=== PATIENT | female | born 1975 | race Hispanic/Latino ===

== ENCOUNTER 2023-06-22 02:47 | Emergency (ER) | payer OTHER ==
[~2023-06-22] VITALS: Ht 152.4 cm; Wt 81.6 kg
[2023-06-22] MEDS ORDERED: OXYMETAZOLINE HCL SPRAY 15 ML BOTTLE ONE (03:09)
[2023-06-22] MEDS ORDERED: SILVER NITRATE APPLICATOR 1 SWAB TP ONE (03:10)
[2023-06-22] MEDS ORDERED: LIDOCAINE HCL 2% VISCOUS 15 ML UDCUP ONE (03:16)
[2023-06-22] MEDS ORDERED: OXYMETAZOLINE HCL SPRAY 15 ML BOTTLE EN SCH (03:30)
[2023-06-22] MEDS ORDERED: LIDOCAINE HCL 2% VISCOUS 15 ML UDCUP PO ONE (03:30)
[2023-06-22 03:49] LABS: BASOPHILS # (AUTO) 0.02 K/uL (0.00-0.20); BASOPHILS % (AUTO) 0.4 % (0.0-5.0); EOSINOPHILS # (AUTO) 0.12 K/uL (0.00-0.70); EOSINOPHILS % (AUTO) 2.3 % (0.0-8.0); HEMATOCRIT 37.7 % (36-48); IMMATURE GRANULOCYTE ABSOLUTE 0.01 K/uL (0-1); LYMPHOCYTES # (AUTO) 1.5 K/uL (1.0-4.8); LYMPHOCYTES % (AUTO) 29.5 % (21.0-51.0); MEAN CORPUSCULAR HEMOGLOBIN 28.6 pg (27.0-33.0); MEAN CORPUSCULAR HGB CONC 33.4 g/dL (32.0-36.0); MEAN CORPUSCULAR VOLUME 85.7 fL (79-99); MONOCYTES # (AUTO) 0.3 K/uL (0.1-1.0); MONOCYTES % (AUTO) 4.8 % (3.0-13.0); NEUTROPHILS # (AUTO) 3.3 K/uL (1.8-7.7); NEUTROPHILS % (AUTO) 62.8 % (40.0-77.0); PLATELET COUNT (AUTO) 77 K/uL (130-400); RED CELL DISTRIBUTION WIDTH 14.8 % (11.0-15.5); WHITE BLOOD COUNT (AUTO) 5.2 K/uL (4.8-10.8)
[2023-06-22 04:01] LABS: INR 0.97 (0.85-1.15); PROTHROMBIN TIME 11.3 SEC (9.6-11.6)
[2023-06-22 04:03] LABS: PARTIAL THROMBOPLASTIN TIME 27.3 SEC (26.3-35.5)
[2023-06-22 04:05] LABS: ALBUMIN 3.9 g/dL (3.5-5.0); BILIRUBIN,TOTAL 0.9 mg/dL (0.2-1.0); CREATININE 0.7 mg/dL (0.5-1.5); POTASSIUM 3.2 mmol/L (3.5-5.1)
[2023-06-22 06:05] VITALS: BP 112/82; PULSE 70; RESP 16; O2SAT 99
[2023-06-22] MEDS ORDERED: OXYM30SP27 NS (06:18)
== END 2023-06-22 06:46 | disposition home or self-care (01) ==
LOC: EDH 02:47
DX: R04.0 Epistaxis (principal); D69.6 Thrombocytopenia, unspecified; I10 Essential (primary) hypertension; E11.9 Type 2 diabetes mellitus without complications; Z90.89 Acquired absence of other organs; Z90.49 Acquired absence of other specified parts of digestive tract; Z90.710 Acquired absence of both cervix and uterus
CPT/HCPCS: 29240; 30901; 36415; 80053; 85025; 85610; 85730

== ENCOUNTER 2025-04-18 05:34 | Inpatient (IN) | payer OTHER ==
[~2025-04-18] VITALS: Ht 162.6 cm; Wt 89.1 kg
[~2025-04-18 05:34] MED LIST: OXYM30SP27 NS
[2025-04-18] MEDS: LACTATED RINGERS 1000ML IV STA (06:03)
[2025-04-18 06:10] LABS: IMMATURE GRANULOCYTE ABSOLUTE 0.05 K/uL (0-1); NUCLEATED RED BLOOD CELLS 0.0 % (0.0-0.19); PLATELET COUNT (AUTO) 122 K/uL (130-400); RED BLOOD CELL COUNT(AUTO) 2.61 MIL/uL (4.00-5.50); RED CELL DISTRIBUTION WIDTH 17.8 % (11.0-15.5); WHITE BLOOD COUNT (AUTO) 10.1 K/uL (4.8-10.8)
--- NOTE | 2025-04-18 06:20 | EKG ---
[facility] Test Date: 2025-04-18 Test Time: 05:47:30 Pat Name: SKIP BACA Department: ED Room: 430 Gender: F Protein Specialist: [id number] : 1975 Requested By: KELLEY SERRANO Order Number: [id number] Reading MD: Kelsi Santaan Measurements Intervals [place] Rate: 128 P: 12 MS: 130 QRS: -23 QRSD: 76 T: -10 QT: 330 QTc: 482 Interpretive Statements Sinus tachycardia No previous ECG available for comparison Electronically Signed On 04-19-2025 16:11:10 CDT by Kelsi Santana Please click the below link to view image of tracing.
[2025-04-18 06:26] LABS: ASPARTATE AMINOTRANSFERASE 11.0 U/L (10-37); CREATININE 0.6 mg/dL (0.5-1.0); GLOMERULAR FILTR. RATE CALC 111.0 mL/min (>90); GLUCOSE,RANDOM 317.0 mg/dL (70-105); SODIUM SERUM 138.0 mmol/L (136-145); TOTAL PROTEIN, SERUM 5.7 g/dL (6.0-8.3); UREA NITROGEN, BLOOD 30.0 mg/dL (7-18)
--- NOTE | 2025-04-18 06:45 | HMCIMG ---
EXAM: CR Abdomen, 1 view. CLINICAL HISTORY: Emesis COMPARISON: None provided. FINDINGS: Surgical clip in the right upper quadrant, right lumbar region, and in the pelvis. Nonobstructive bowel gas pattern. Moderate fecal residue in the cecum and ascending and proximal transverse colon. Nonobstructed nonspecific bowel gas pattern. No free air is evident. No abnormal calcification. No aggressive appearing osseous lesion. IMPRESSION: No acute process. Nonobstructive bowel gas pattern. Moderate fecal residue in the cecum and ascending and proximal transverse colon. Probable causes of constipation. Surgical clip in the right upper quadrant, right lumbar region, and pelvis. /[place]
--- NOTE | 2025-04-18 06:49 | ERN ---
General Chief Complaint: Tarry Stool Stated Complaint: VOMITING BLOOD X 2 DAYS,BLACK STOOLS X 1 DAY Time Seen by MD: 05:39 History of Present Illness Initial Comments 50-year-old female with a history of hypertension liver disease and anemia comes in with history of emesis with bright red blood for two days as well as black tarry stools for two days. In addition she feels lightheaded and is extremely tachycardic to 130. She also feels pale skin and short of breath. Allergies: Coded Allergies: No Known Allergies (Unverified Allergy, Unknown, 06/22/23) Home Meds Active Scripts Oxymetazoline HCl (Afrin) 0.05 % [place], 2 SPRAY NS Q2HPRN PRN for nose bleed, #1 SPRAY Prov:YNR LE MD 06/22/23 Past Medical History Past Medical History: Anemia, Diabetes-Type II, Hypertension, Liver Disease, Other Medical History Other: LOW PLT, FREQUENT NOSE BLEEDS, NON ALCOHOLIC CIRRHOSIS Past Surgical History: Appendectomy, Hysterectomy, Cholecystectomy, Constitutional: (-) chills, (-) diaphoresis, (-) fever, (-) malaise, (-) weakness, (-) other documentation EENTM: (-) eye pain, (-) blurred vision, (-) tearing, (-) double vision, (-) ear pain, (-) ear discharge, (-) nose pain, (-) nose congestion, (-) throat pain, (-) Throat swelling, (-) mouth pain, (-) tooth pain, (-) mouth swelling, (-) other documentation Respiratory: (-) cough, (-) orthopnea, (-) short of breath, (-) stridor, (-) wheezing, (-) other documentation Cardiovascular: (-) chest pain, (-) edema, (-) palpitations, (-) syncope, (-) dyspnea on exertion, (-) other documentation Gastrointestinal/Abdominal: (+) nausea, (+) vomiting Genitourinary: (-) vaginal discharge, (-) vaginal bleeding, (-) dysuria, (-) frequency, (-) hematuria, (-) pain, (-) other documentation Musculoskeletal: (-) Neck pain, (-) back pain, (-) Flank Pain, (-) joint pain, (-) joint swelling, (-) muscle pain, (-) muscle stiffness, (-) gout, (-) other documentation Physical Exam General Appearance: (+) moderate distress Orientation: (+) alert, (+) oriented x 3 Head/Face Trauma: No Eye: bilateral eye normal inspection, bilateral eye PERRL, bilateral eye EOMI Ear, Nose, Throat: (+) hearing grossly normal, (+) normal ENT inspection, (+) moist mucous membraine Neck: (+) normal inspection, (+) supple, (+) full range of motion Respiratory: (+) chest non-tender, (+) lungs clear, (+) well ventilated Heart: (+) regular, (+) no gallop, (+) tachycardia Vascular: (+) no edema, (+) normal peripheral pulse, (+) no JVD Gastrointestinal: (+) soft, (+) tender, (+) bowel sound absent Results Laboratory and Microbiology Lab and Micro Result Laboratory Tests Test 04/18/25 05:54 White Blood Count 10.1 K/uL (4.8-10.8) Red Blood Count 2.61 MIL/uL (4.00-5.50) L Hemoglobin 5.7 g/dL (12.0-16.0) *L Hematocrit 19.6 % (36-48) *L Mean Corpuscular Volume 75.1 fL (79-99) L Mean Corpuscular Hemoglobin 21.8 pg (27.0-33.0) L Mean Corpuscular Hemoglobin Concent 29.1 g/dL (32.0-36.0) L Red Cell Distribution Width 17.8 % (11.0-15.5) H Platelet Count 122 K/uL (130-400) L Mean Platelet Volume 11.2 fL (7.5-10.5) H Immature Granulocyte % (Auto) 0.5 % (0-1) Neutrophils (%) (Auto) 77.8 % (40.0-77.0) H Lymphocytes (%) (Auto) 17.1 % (21.0-51.0) L Monocytes (%) (Auto) 2.8 % (3.0-13.0) L Eosinophils (%) (Auto) 1.3 % (0.0-8.0) Basophils (%) (Auto) 0.5 % (0.0-5.0) Neutrophils # (Auto) 7.9 K/uL (1.8-7.7) H Lymphocytes # (Auto) 1.7 K/uL (1.0-4.8) Monocytes # (Auto) 0.3 K/uL (0.1-1.0) Eosinophils # (Auto) 0.13 K/uL (0.00-0.70) Basophils # (Auto) 0.05 K/uL (0.00-0.20) Absolute Immature Granulocyte (auto 0.05 K/uL (0-1) Nucleated Red Blood Cells 0.0 % (0.0-0.19) Sodium Level 138 mmol/L (136-145) Potassium Level 4.3 mmol/L (3.5-5.1) Chloride Level 104 mmol/L (101-111) Carbon Dioxide Level 28 mmol/L (21-32) Blood Urea Nitrogen 30 mg/dL (7-18) H Creatinine 0.6 mg/dL (0.5-1.0) Glomerular Filtration Rate Calc 111 mL/min (>90) Random Glucose 317 mg/dL (70-105) H Total Calcium 7.9 mg/dL (8.5-10.1) L Total Bilirubin 1.0 mg/dL (0.2-1.0) Aspartate Amino Transf (AST/SGOT) 11 U/L (10-37) Alanine Aminotransferase (ALT/SGPT) 21 U/L (12-78) Alkaline Phosphatase 92 U/L (50-136) Total Protein 5.7 g/dL (6.0-8.3) L Albumin 2.9 g/dL (3.5-5.0) L MDM MDM: Differential diagnosis: GERD, esophagitis, esophageal varices, severe anemia, lower GI bleeding, Rationale: Tests considered and ordered secondary to shared decision making include: Previous outside records reviewed: Old ER visits. Risk of complication and/or morbidity or mortality of patient management: None Medications-Per medication reconciliation Need for hospitalization: Patient does meet criteria for hospitalization. Need for emergency major/minor surgery: No There are no social concerns with this patient. Prescription drug management Prescriptions will include symptomatic care Patient's prior external medical records from other ER visits were reviewed by me as indicated. Prior testing and results from previous visits were reviewed. Prior tests were taken into account with medical decision making and resource utilization, independent historian/historians were used to obtain complete medical history. I independently interpreted the test that were performed, results were reviewed by me and considered findings on radiology if ordered. Laboratory analysis shows a patient has a hemoglobin of 5.7. We have started a type and cross and transfusing her blood. Patient's platelets are greater than 100 so she probably is not bleeding from a coagulopathy. My concern with her liver disease is that she has a esophageal varices. I have called the hospitalist service and they have agreed to admit her. They will be consulting Dr. Edwards of the GI services. Patient's liver enzymes are normal. Her blood glucose is 300 I will give her some insulin. ED Course Orders Procedure Category Date Status Time 12 Lead Ekg Tracing- EKG 04/18/25 Complete Technical 05:40 Comprehensive LAB 04/18/25 Complete Metabolic Panel 05:40 Cbc With Differential LAB 04/18/25 In Process 05:40 Urinalysis Profile LAB 04/18/25 Logged 05:40 Lactated Ringers PHA 04/18/25 Complete 1000ml (Lactated 05:40 Ondansetron 4mg Inj PHA 04/18/25 Complete (Zofran 4mg Inj) 06:00 Abd 1vw RAD 04/18/25 Taken 05:40 Type And Screen BBK 04/18/25 In Process 05:59 Rbc-Active Bleeding BBK 04/18/25 In Process 06:17 Admit Orders ADM 04/18/25 Transmitted 06:30 Cbc Without LAB 04/18/25 Logged Differential 06:30 Comprehensive LAB 04/18/25 Logged Metabolic Panel 06:30 Gastroenterology CONPHYSVC 04/18/25 Transmitted Consult 06:30 Hemoglobin And LAB 04/18/25 Logged Hematocrit 10:00 Hemoglobin And LAB 04/18/25 Logged Hematocrit 18:00 Pantoprazole 40mg Inj PHA 04/18/25 In Process (Protonix 40mg Inj 06:30 Ondansetron 4mg Inj PHA 04/18/25 In Process (Zofran 4mg Inj) 06:30 Octreotide Acetate PHA 04/18/25 In Process (Sandostatin) 06:30 Ct Abdomen/Pelvis W/O CT 04/18/25 Logged Contrast 06:30 Nothing By Mouth DIET 04/18/25 Transmitted Breakfast Current Medications Medications (Trade) Dose Ordered Sig/Carlos Route PRN Reason Start Time Stop Time Status Last Admin Dose Admin Lactated Ringer's (Lactated Ringers 1000ml) 1,000 ml BOLUS STAT IV 04/18/25 05:40 04/18/25 05:44 DC 04/18/25 06:03 Octreotide Acetate 1250 mcg/ Sodium Chloride 250 ml @ 0 mls/hr PROTOCOL IV 04/18/25 06:30 05/18/25 06:29 Ondansetron HCl (zoFRAN 4MG INJ) 4 mg ONCE ONCE IVP 04/18/25 06:00 04/18/25 06:01 DC 04/18/25 06:03 Ondansetron HCl (zoFRAN 4MG INJ) 4 mg Q6H PRN IVP NAUSEA/VOMITING 04/18/25 06:30 05/18/25 06:29 Pantoprazole Sodium 80 mg/ Sodium Chloride 100 ml @ 10 mls/hr Q10H IV 04/18/25 06:30 05/18/25 06:29 Vital Signs Date Time Temp Pulse Resp B/P (MAP) Pulse Ox O2 Delivery O2 Flow Rate FiO2 04/18/25 05:45 97.9 126 12 126/84 100 Room Air* 0 21 04/18/25 05:35 98.6 133 20 126/84 99 Room Air 0 DX & DISP Disposition: Inpatient Departure Impression: Primary Impression: Upper GI bleeding Additional Impressions: Anemia, Hyperglycemia Condition: Stable Referrals: ROB JERONIMO (PCP) KELLEY SERRANO MD Apr 18, 2025 06:49
--- NOTE | 2025-04-18 07:05 | HP ---
[facility] PH[facility] Date of Service: Apr 18, 2025 Time of Service: 07:05 HISTORY OF PRESENT ILLNESS: [50 year old female with past medical history of non alcoholic liver cirrhosis, diabetes, hypertension who presented to the emergency department with h ematochezia and hematemesis. According to the patient it started about two days ago when she ate a taco and she threw up blood and yesterday patient had a black stool and was having diarrhea. Associated symptoms include weakness, headache, dizziness, generalized weakness and short of breath. Patient reported that she was unable to do anything yesterday as she has been generally weak and unable to breathe. Patient also stated that she was newly diagnosed with nonalcoholic liver cirrhosis back in November of 2024 for which she also had blood transfusion and under the care of [facility] digestive specialist and Dr. Frank. In the emergency department, her hemoglobin was 5.7 and hematocrit of 19.6. Patient was type and cross and blood transfusion was started. She will be seen by assembler and tester electronics for further evaluation and management. ] REVIEW OF SYSTEMS CONSTITUTIONAL: Denies fevers, chills, or night sweats. No unintentional weight loss reported. NEUROLOGICAL: Denies headache, amaurosis fugax, motor weakness, sensory deficit, vertigo/spinning sensation, gait abnormalities, or tremors. ENT: No hearing loss, otalgia, otorrhea, rhinitis, rhinorrhea, hoarseness, or sore throat. CARDIOVASCULAR: Denies any exertional angina, dyspnea on exertion, orthopnea, paroxysmal nocturnal dyspnea, palpitations, life-threatening arrhythmias, claudication. PULMONARY: Denies any shortness of breath, cough, phlegm/sputum, hemoptysis, pleuritic chest pain. SLEEP: Denies morning headaches, daytime somnolence or napping. Denies difficulty falling asleep, staying asleep, waking from sleep. Denies knowledge of snoring. GASTROINTESTINAL: Denies any type of dysphagia to either liquids or solids. Denies nausea, vomiting, pyrosis, early satiety, abdominal pain, diarrhea, constipation, or changes in stool consistency or caliber. Denies coffee-ground emesis, hematemesis, hematochezia, or melanotic stools. GENITOURINARY: Denies frequency, urgency, nocturia, hematuria or incontinence (Storage/Irritative symptoms.) Low urinary stream, straining to void, urinary intermittency or hesitancy, splitting of the voiding stream, terminal dribbling. ENDOCRINOLOGIC: Denies polyuria, polydipsia, polyphagia or heat/cold intolerances. HEMATOLOGIC: Denies thrombophilia/previous clots, or coagulopathy/bleeding disorders. ONCOLOGIC: Denies personal history of malignancy. DERMATOLOGIC: Denies rashes or pruritus. PSYCHIATRIC: Denies any suicidal or homicidal ideation. Denies hallucinations. PAST MEDICAL HISTORY: [Not alcoholic liver cirrhosis, hypertension, diabetes mellitus ] PAST SURGICAL HISTORY: [ Appendectomy, Hysterectomy, Cholecystectomy, ] PAST SOCIAL HISTORY: [Denies tobacco, hardly drinks alcohol and denies illicit drug use ] FAMILY HISTORY: [Noncontributory ] Coded Allergies: No Known Allergies (Unverified Allergy, Unknown, 06/22/23) PHYSICAL EXAM GENERAL APPEARANCE: The patient is awake, alert, and oriented, in no acute cardiopulmonary distress. NEUROLOGICAL: Cranial nerves II-XII grossly intact. Motor is 5/5 in bilateral upper and lower extremities proximal to distal. No sensory deficits. HEENT: Face is symmetric. Pupils are equal and reactive. Extraocular movements are intact. NECK: Supple. No JVD. No thyromegaly. No submental, submandibular, pre- /postauricular, occipital or supraclavicular lymphadenopathy. CHEST: Normal chest expansion. No Telemetry. LUNGS: Absence of any rales, rhonchi or any wheezing. CARDIOVASCULAR: Regular. S1 and S2 normal. No appreciable rubs, murmurs or gallops. ABDOMEN: Soft, nontender, and nondistended. There is no rebound, voluntary guarding, or rigidity. : Deferred. No Holly. EXTREMITIES: Non-edematous and not cyanotic. No clubbing. Good capillary refill. SKIN: No skin breakdown. Vital Sign (Last 24 Hours) 04/18/25 05:45 Temp 97.9 Pulse 126 Resp 12 B/P (MAP) 126/84 Pulse Ox 100 O2 Delivery Room Air* O2 Flow Rate 0 FiO2 21 LABS: Laboratory: Test 04/18/25 05:54 Range/Units White Blood Count 10.1 4.8-10.8 K/uL Red Blood Count 2.61 L 4.00-5.50 MIL/uL Hemoglobin 5.7 *L 12.0-16.0 g/dL Hematocrit 19.6 *L 36-48 % Mean Corpuscular Volume 75.1 L 79-99 fL Mean Corpuscular Hemoglobin 21.8 L 27.0-33.0 pg Mean Corpuscular Hemoglobin Concent 29.1 L 32.0-36.0 g/dL Red Cell Distribution Width 17.8 H 11.0-15.5 % Platelet Count 122 L 130-400 K/uL Mean Platelet Volume 11.2 H 7.5-10.5 fL Immature Granulocyte % (Auto) 0.5 0-1 % Neutrophils (%) (Auto) 77.8 H 40.0-77.0 % Lymphocytes (%) (Auto) 17.1 L 21.0-51.0 % Monocytes (%) (Auto) 2.8 L 3.0-13.0 % Eosinophils (%) (Auto) 1.3 0.0-8.0 % Basophils (%) (Auto) 0.5 0.0-5.0 % Neutrophils # (Auto) 7.9 H 1.8-7.7 K/uL Lymphocytes # (Auto) 1.7 1.0-4.8 K/uL Monocytes # (Auto) 0.3 0.1-1.0 K/uL Eosinophils # (Auto) 0.13 0.00-0.70 K/uL Basophils # (Auto) 0.05 0.00-0.20 K/uL Absolute Immature Granulocyte (auto 0.05 0-1 K/uL Nucleated Red Blood Cells 0.0 0.0-0.19 % Sodium Level 138 136-145 mmol/L Potassium Level 4.3 3.5-5.1 mmol/L Chloride Level 104 101-111 mmol/L Carbon Dioxide Level 28 21-32 mmol/L Blood Urea Nitrogen 30 H 7-18 mg/dL Creatinine 0.6 0.5-1.0 mg/dL Glomerular Filtration Rate Calc 111 >90 mL/min Random Glucose 317 H 70-105 mg/dL Total Calcium 7.9 L 8.5-10.1 mg/dL Total Bilirubin 1.0 0.2-1.0 mg/dL Aspartate Amino Transf (AST/SGOT) 11 10-37 U/L Alanine Aminotransferase (ALT/SGPT) 21 12-78 U/L Alkaline Phosphatase 92 50-136 U/L Total Protein 5.7 L 6.0-8.3 g/dL Albumin 2.9 L 3.5-5.0 g/dL Current Medications Medications (Trade) Dose Ordered Sig/Carlos Route PRN Reason Start Time Stop Time Status Last Admin Dose Admin Lactated Ringer's (Lactated Ringers 1000ml) 1,000 ml BOLUS STAT IV 04/18/25 05:40 04/18/25 05:44 DC 04/18/25 06:03 1,000 ML Octreotide Acetate 1250 mcg/ Sodium Chloride 250 ml @ 0 mls/hr PROTOCOL IV 04/18/25 06:30 05/18/25 06:29 Ondansetron HCl (zoFRAN 4MG INJ) 4 mg Q6H PRN IVP NAUSEA/VOMITING 04/18/25 06:30 05/18/25 06:29 Pantoprazole Sodium 80 mg/ Sodium Chloride 100 ml @ 10 mls/hr Q10H IV 04/18/25 06:30 05/18/25 06:29 DIAGNOSTICS / RADIOLOGY: [place] [address] IMAGING REPORT Signed PATIENT: SKIP BACA MR#: [id number] : 1975 SEX: F AGE: 50 LOCATION: [facility] ORDER 9 STATUS: ADM IN REPORT#: [id number] SERVICE 9 REASON: pain, gi bleed ORDERING PHYSICIAN: GABBY BEEBE PROCEDURE: ABD PEL WO - CT ABDOMEN/PELVIS W/O CONTRAST EXAM: CT Abdomen and Pelvis Without IV contrast CLINICAL HISTORY: pain, gi bleed TECHNIQUE: Axial computed tomography images of the abdomen and pelvis without intravenous contrast. CONTRAST: No IV contrast. COMPARISON: None provided. FINDINGS: LUNG BASES: The lung bases appear clear. No pleural effusions are seen. LIVER: Cirrhotic liver. GALLBLADDER AND BILE DUCTS: Cholecystectomy. PANCREAS: Haziness of fat about pancreas. Acute pancreatitis not excluded. Correlate with physical and laboratory findings. SPLEEN: Splenomegaly. Spleen measures 16 cm in AP diameter. ADRENAL GLANDS: Unremarkable. KIDNEYS, URETERS, AND BLADDER: The kidneys appear within normal limits. There is no hydronephrosis or hydroureter. No urinary calculi are seen. STOMACH AND BOWEL: Unremarkable appearance of the stomach and bowel. No evidence of bowel obstruction. No evidence suggesting enteritis or colitis. APPENDIX: There is prominent soft tissue with associated surgical clips at the level of the cecum, . Surgical clips at this level could be the result of prior appendectomy. However thickened soft tissue in this region could represent possible stump appendicitis versus underlying neoplasm. Correlation with history, physical examination, and prior imaging if available recommended. PERITONEUM: No free fluid. No free air. LYMPH NODES: No lymphadenopathy is evident. REPRODUCTIVE: Unremarkable as visualized. VASCULATURE: No evidence of abdominal aortic aneurysm. BONES: No aggressive appearing osseous lesion. No acute osseous pathology evident. MISCELLANEOUS: Examination limited without the administration of intravenous contrast. IMPRESSION: 1. Cirrhotic liver with splenomegaly, measuring 16 cm in AP diameter. 2. Haziness of peripancreatic fat; acute pancreatitis not excluded. Correlate with physical and laboratory findings. 3. Prominent soft tissue with surgical clips at the level of the cecum, possibly representing stump appendicitis versus underlying neoplasm. Correlation with history, physical examination, and prior imaging if available recommended. 4. Evaluation for GI bleed limited as no intravenous contrast administered. /[place] DICTATED BY: GILA STEWART MD DATE: 04/18/25814 ELECTRONICALLY SIGNED BY: GILA STEWART MD DATE: 04/18/[address] [place] [id number] IMAGING REPORT Signed PATIENT: SKIP BACA MR#: [id number] : 1975 SEX: F AGE: 50 LOCATION: [facility] ORDER 1 STATUS: REG REPORT#: [id number] SERVICE 9 REASON: emesis ORDERING PHYSICIAN: KELLEY SERRANO MD PROCEDURE: ABD 1VW - ABD 1VW EXAM: CR Abdomen, 1 view. CLINICAL HISTORY: Emesis COMPARISON: None provided. FINDINGS: Surgical clip in the right upper quadrant, right lumbar region, and in the pelvis. Nonobstructive bowel gas pattern. Moderate fecal residue in the cecum and ascending and proximal transverse colon. Nonobstructed nonspecific bowel gas pattern. No free air is evident. No abnormal calcification. No aggressive appearing osseous lesion. IMPRESSION: No acute process. Nonobstructive bowel gas pattern. Moderate fecal residue in the cecum and ascending and proximal transverse colon. Probable causes of constipation. Surgical clip in the right upper quadrant, right lumbar region, and pelvis. /[place] DICTATED BY: MEENU OLVETT Jr., MD DATE: 04/18/25744 ELECTRONICALLY SIGNED BY: MEENU LOVETT Jr., MD DATE: 04/18/25744 ] ASSESSMENT: [Acute upper and lower GI bleed, POA Asymptomatic blood loss anemia POA Cirrhotic liver and splenomegaly measuring 16 cm in AP diameter per CT abdomen and pelvis, POA Prominent soft tissue with surgical clips at the level of the cecum, possibly representing stump appendicitis versus underlying neoplasm. Correlation with history, physical examination, and prior imaging if available recommended Thrombocytopenia POA Hyperglycemia with DM, POA Moderate protein caloric malnutrition, POA Morbid obesity with BMI of 33.6 kg/M2 ] PLAN: [We will admit patient in medical telemetry floor Patient will be NPO Initiate IV fluids, oxygen and transfused to hgb less than 7g/dL Correct coagulopathy with platelets if <50,000/L and FFP if INR >1.5 Start IV PPI and octreotide if variceal bleeding is suspected Give ceftriaxone 1 g IV daily for 7 days Type and cross with 1 unit of PRBC transfusion Serial H&H, we will continue to transfuse if hemoglobin is less than seven Diagnostic evaluation: Perform urgent EGD within 12 hours and colonoscopy within 24 hours after stabilization Continue with lactated Ringer's at 100 mL/hour ] Cecal mass management: Obtain surgical consultation for possible stump appendicitis or neoplasm. If malignancy is suspected, perform biopsy and staging CT. If appendicitis is confirmed, proceed with appendectomy. Thrombocytopenia management: Monitor platelet count and consider thrombopoietin receptor agonists if persistent thrombocytopenia Hyperglycemia management: Initiate insulin therapy and monitor blood glucose closely. Nutritional support: Start enteral nutrition with high-protein, calorie-dense formula and monitor nutritional status Morbid obesity management: Implement weight loss strategies, including dietary counseling and physical activity. Monitoring and follow-up: Monitor for rebleeding, infection, and other complications. Schedule regular follow-up visits and imaging studies. FULL CODE ADVANCED CARE PLANNING 1. Which of the following were discussed? Hospice Care - Yes / No Therapeutic options - Yes / No Advance Directives - Yes / No Other discussions - 2. Discussed with who? Patient 3. Voluntary nature of this service was explained to the patient? Yes / No 4. Amount of time spent - ____30 mins___ 5. Reviewed by Physician? (if this service was performed by NPP) Yes / No ATTESTATION BY PHYSICIAN I have seen and examined the patient. I reviewed the documentation, medical decision making, and treatment plan as noted by the mid-level provider above. I agree with the findings and plan of care. LUIZA GOODEN MD, [facility] Apr 18, 2025 07:05
--- NOTE | 2025-04-18 07:15 | HMCIMG ---
EXAM: CT Abdomen and Pelvis Without IV contrast CLINICAL HISTORY: pain, gi bleed TECHNIQUE: Axial computed tomography images of the abdomen and pelvis without intravenous contrast. CONTRAST: No IV contrast. COMPARISON: None provided. FINDINGS: LUNG BASES: The lung bases appear clear. No pleural effusions are seen. LIVER: Cirrhotic liver. GALLBLADDER AND BILE DUCTS: Cholecystectomy. PANCREAS: Haziness of fat about pancreas. Acute pancreatitis not excluded. Correlate with physical and laboratory findings. SPLEEN: Splenomegaly. Spleen measures 16 cm in AP diameter. ADRENAL GLANDS: Unremarkable. KIDNEYS, URETERS, AND BLADDER: The kidneys appear within normal limits. There is no hydronephrosis or hydroureter. No urinary calculi are seen. STOMACH AND BOWEL: Unremarkable appearance of the stomach and bowel. No evidence of bowel obstruction. No evidence suggesting enteritis or colitis. APPENDIX: There is prominent soft tissue with associated surgical clips at the level of the cecum, . Surgical clips at this level could be the result of prior appendectomy. However thickened soft tissue in this region could represent possible stump appendicitis versus underlying neoplasm. Correlation with history, physical examination, and prior imaging if available recommended. PERITONEUM: No free fluid. No free air. LYMPH NODES: No lymphadenopathy is evident. REPRODUCTIVE: Unremarkable as visualized. VASCULATURE: No evidence of abdominal aortic aneurysm. BONES: No aggressive appearing osseous lesion. No acute osseous pathology evident. MISCELLANEOUS: Examination limited without the administration of intravenous contrast. IMPRESSION: 1. Cirrhotic liver with splenomegaly, measuring 16 cm in AP diameter. 2. Haziness of peripancreatic fat; acute pancreatitis not excluded. Correlate with physical and laboratory findings. 3. Prominent soft tissue with surgical clips at the level of the cecum, possibly representing stump appendicitis versus underlying neoplasm. Correlation with history, physical examination, and prior imaging if available recommended. 4. Evaluation for GI bleed limited as no intravenous contrast administered. /Gardiner
[2025-04-18] MEDS: LACTATED RINGERS 1000ML 1,000 ML IV SCH (07:44)
--- NOTE | 2025-04-18 08:30 | NUR ---
GI CONSULT CALLED DR AGUILAR
--- NOTE | 2025-04-18 10:06 | CONS ---
GASTROENTEROLOGY CONSULTATION NOTE Date of Consultation: Apr 18, 2025 Time of Consultation: 10:05 History of Present Illness: [This is a 50-year-old female patient with past medical history for cirrhosis of the liver, type 2 diabetes, thrombocytopenia, iron-deficiency anemia, chronic idiopathic constipation, who presented to the emergency room with complaints of hematemesis for two days and having black tarry stools for two days. Initial WBC of 10.1, hemoglobin 5.7, hematocrit 19.6, with platelets of 122. Chemistries significant for BUN of 30, glucose 317, calcium 7.9, total protein 5.7, and albumin 2.9. Total bilirubin, AST and ALT, and alkaline phosphatase are normal. Abdominal x-ray showing no acute process. Nonobstructive bowel gas pattern. Moderate fecal residue in the cecum and ascending and proximal transverse colon. Probable causes of constipation. Surgical clip in the right upper quadrant, right lumbar region, and pelvis. CT of abdomen and pelvis without contrast with the following findings: 1. Cirrhotic liver with splenomegaly, measuring 16 cm in AP diameter. 2. Haziness of peripancreatic fat; acute pancreatitis not excluded. Correlate with physical and laboratory findings. 3. Prominent soft tissue with surgical clips at the level of the cecum, possibly representing stump appendicitis versus underlying neoplasm. Correlation with history, physical examination, and prior imaging if available recommended. 4. Evaluation for GI bleed limited as no intravenous contrast administered. Per ER nurse, patient has 2 units of RBCs ordered and pending. On exam, patient is awake, alert and oriented in no acute distress. The patient's respirations are unlabored. She reported having hematemesis at onset of emesis episodes. She also reports having dark tarry stools x 3 days. Recommendations for EGD given. ] Review of Systems: CONSTITUTIONAL: No malaise or change in sensation of wellbeing. ENMT: No rhinorrhea, otorrhea, sinus pain, ear ache. CARDIOVASCULAR: No angina, palpitations, orthopnea or paroxysmal dyspnea. RESPIRATORY: No SOB. GASTROINTESTINAL: No abdominal pain, nausea, vomiting, diarrhea, hematemesis, melena or change in the patient's habitual bowel movements consistency/number. GENITOURINARY: No dysuria, hematuria or change in bladder continence. MUSCULOSKELETAL: No new muscle pain or decrease in muscular strength. No new joint swelling, redness or tenderness. SKIN: No new rash. Past Medical History: [ Liver Cirrhosis, Type 2 Diabetes, Thrombocytopenia, Iron deficiency anemia, chronic idiopathic constipation] Past Surgical History: [ Cholecystectomy, C section, Appendectomy, Hysterectomy] Past Social History: [, Occasional alcohol consumption, Caffeine:1 cup of coffee daily] Family History: [1 son, 1 daughter; ] Coded Allergies: No Known Allergies (Unverified Allergy, Unknown, 06/22/23) Physical Exam: GEN: Awake, alert, oriented in person, time and place, and in no acute distress. HEENT: No rhinorrhea. Oral pharyngeal mucosa is pink, moist and within normal limits. CHEST: Lung auscultation revealed normal breath sounds bilaterally. CARDIAC:Heart sounds are regular. ABD: Soft, midl tenderness to upper abdomen and not distended. No peritoneal signs on palpation. Normal bowel sounds. Last bm 04/18/25 EXT: No cyanosis or clubbing. No edema. SKIN: Intact. No rashes. NEURO: Alert and oriented to name, place and person.No focal motor deficits. Normal speech. Vital Sign (Last 24 Hours) 04/18/25 04/18/25 07:30 09:00 Temp 97.9 Pulse 111 Resp 12 B/P (MAP) 110/67 Pulse Ox 99 O2 Delivery Room Air* O2 Flow Rate 0 FiO2 21 Laboratory: [ ] Laboratory: Test 04/18/25 07:41 04/18/25 05:54 Range/Units Whole Blood Glucose 291 H 70-110 MG/DL White Blood Count 10.1 4.8-10.8 K/uL Red Blood Count 2.61 L 4.00-5.50 MIL/uL Hemoglobin 5.7 *L 12.0-16.0 g/dL Hematocrit 19.6 *L 36-48 % Mean Corpuscular Volume 75.1 L 79-99 fL Mean Corpuscular Hemoglobin 21.8 L 27.0-33.0 pg Mean Corpuscular Hemoglobin Concent 29.1 L 32.0-36.0 g/dL Red Cell Distribution Width 17.8 H 11.0-15.5 % Platelet Count 122 L 130-400 K/uL Mean Platelet Volume 11.2 H 7.5-10.5 fL Immature Granulocyte % (Auto) 0.5 0-1 % Neutrophils (%) (Auto) 77.8 H 40.0-77.0 % Lymphocytes (%) (Auto) 17.1 L 21.0-51.0 % Monocytes (%) (Auto) 2.8 L 3.0-13.0 % Eosinophils (%) (Auto) 1.3 0.0-8.0 % Basophils (%) (Auto) 0.5 0.0-5.0 % Neutrophils # (Auto) 7.9 H 1.8-7.7 K/uL Lymphocytes # (Auto) 1.7 1.0-4.8 K/uL Monocytes # (Auto) 0.3 0.1-1.0 K/uL Eosinophils # (Auto) 0.13 0.00-0.70 K/uL Basophils # (Auto) 0.05 0.00-0.20 K/uL Absolute Immature Granulocyte (auto 0.05 0-1 K/uL Nucleated Red Blood Cells 0.0 0.0-0.19 % Red Blood Cell Morphology See comments Sodium Level 138 136-145 mmol/L Potassium Level 4.3 3.5-5.1 mmol/L Chloride Level 104 101-111 mmol/L Carbon Dioxide Level 28 21-32 mmol/L Blood Urea Nitrogen 30 H 7-18 mg/dL Creatinine 0.6 0.5-1.0 mg/dL Glomerular Filtration Rate Calc 111 >90 mL/min Random Glucose 317 H 70-105 mg/dL Total Calcium 7.9 L 8.5-10.1 mg/dL Total Bilirubin 1.0 0.2-1.0 mg/dL Aspartate Amino Transf (AST/SGOT) 11 10-37 U/L Alanine Aminotransferase (ALT/SGPT) 21 12-78 U/L Alkaline Phosphatase 92 50-136 U/L Total Protein 5.7 L 6.0-8.3 g/dL Albumin 2.9 L 3.5-5.0 g/dL Current Medications Medications (Trade) Dose Ordered Sig/Carlos Route PRN Reason Start Time Stop Time Status Last Admin Dose Admin Insulin Human Regular (humuLIN R 100 UNIT/ML 3ML) INSULIN SLIDING SCAL... Q6H6 SQ 04/18/25 12:00 05/18/25 11:59 Lactated Ringer's 1,000 ml @ 75 mls/hr [id number] IV 04/18/25 07:00 05/18/25 06:59 04/18/25 07:44 75 MLS/HR Lactated Ringer's (Lactated Ringers 1000ml) 1,000 ml BOLUS STAT IV 04/18/25 05:40 04/18/25 05:44 DC 04/18/25 06:03 1,000 ML Octreotide Acetate 1250 mcg/ Sodium Chloride 250 ml @ 0 mls/hr PROTOCOL IV 04/18/25 06:30 05/18/25 06:29 04/18/25 07:11 5 MLS/HR Ondansetron HCl (zoFRAN 4MG INJ) 4 mg Q6H PRN IVP NAUSEA/VOMITING 04/18/25 06:30 05/18/25 06:29 Pantoprazole Sodium 80 mg/ Sodium Chloride 100 ml @ 10 mls/hr Q10H IV 04/18/25 06:30 05/18/25 06:29 04/18/25 07:03 10 MLS/HR Diagnostics / Radiology: [COPY/PASTE HERE IF NO REPORTS PLEASE DELETE SECTION] Assessment: [ Hematemesis, Melena Concern for GI bleed anemia Liver cirrhosis Type 2 diabetes] DDX Melena: peptic ulcer, esophageal varices, angiodysplasia, Anali Trevizo tear, Dieulafoy lesion, malignancy, small bowel source (angiodysplasia, ulcer, malignancy) and right colonic sources (angiodysplasia, colon polyp, malignancy, colitis) Plan Case discussed with Dr. Gusman 1. NPO 2. EGD in AM. I have discussed the risks, benefits, alternatives, and potential complications. Questions were answered and they agree to proceed. 3. Pantoprazole drip: 80 mg IV bolus and then 8 mg /hr IV infusion for 72 hours 4. Octreotide 50 mcg IV bolus and then 50 mcg/hr IV infusion for 72 hours 5. Recommend checking HGB every 6 hours and transfuse to goal HG>7. Please do not overtransfuse 6. Please contact our service if the patient has significant bleeding such as hematemesis and we can proceed sooner with the EGD Thank you for allowing us to participate in the care of this patient. BRENDA NIÑO NP Apr 18, 2025 10:06
--- NOTE | 2025-04-18 11:15 | NUR ---
DCP; HOME sw met with pt who works at [employer], lives at home with her Matt Olmos [phone]. Pt reports she remains active, drives, uses no DME or in home care services. Pt able to complete ADLS, home management and meal prep on her own. PCP is A Staton and uses [facility] for rx. DC plan is home Addendum: 04/18/25 at 1124 by LINK PRESTON Amended: Links added.
[2025-04-18] MEDS ORDERED: COMPOUND IV MISC 1 EACH IVSOLN MISC PRN (11:30)
[2025-04-18] MEDS ORDERED: COMPOUND IV REFRIGERATED 1 EACH IVSOLN MISC PRN (11:30)
[2025-04-18 12:01] VITALS: BP 90/52; PULSE 100; RESP 18; TEMP 97.8
--- NOTE | 2025-04-18 14:12 | NUR ---
NOTIFIED ANTHONY PIERRE RESULTS OF HGB 7.3. SECOND TRANSFUSION NOT NEEDED AT THIS TIME.
[2025-04-18 16:00] VITALS: BP 100/60; PULSE 100; RESP 18; TEMP 97.8
[2025-04-18 16:15] LABS: ADD UA MICROSCOPIC YES; APPEARANCE,URINE CLEAR (CLEAR); GLUCOSE, URINE (UA) 300 mg/dL (NEGATIVE); LEUKOCYTE ESTERASE ,URINE NEGATIVE Leu/uL (NEGATIVE); NITRATE,URINE NEGATIVE (NEGATIVE); OCCULT BLOOD,URINE NEGATIVE (NEGATIVE)
[2025-04-18 16:19] LABS: SQUAMOUS EPITHELIAL CELL,UR RARE /HPF (0-2)
--- NOTE | 2025-04-18 17:13 | PN ---
wrong patient Vitals/Labs Vital Signs Date Time Temp Pulse Resp B/P (MAP) Pulse Ox O2 Delivery O2 Flow Rate FiO2 04/18/25 16:00 97.9 100 18 100/60 97 Room Air 04/18/25 09:00 0 21 Laboratory Tests 04/18/25 05:54 04/18/25 13:52 Medications Current Medications Lactated Ringer's 1,000 ml BOLUS STAT IV Last administered on 04/18/25at 06:03; Start 04/18/25 at 05:40; Stop 04/18/25 at 05:44; Status DC Ondansetron HCl 4 mg ONCE ONCE IVP Last administered on 04/18/25at 06:03; Start 04/18/25 at 06:00; Stop 04/18/25 at 06:01; Status DC Pantoprazole Sodium 80 mg/ Sodium Chloride 100 ml @ 10 mls/hr Q10H IV Last administered on 04/18/25at 15:08; Start 04/18/25 at 06:30; Stop 05/18/25 at 06:29 Ondansetron HCl 4 mg Q6H PRN IVP; Start 04/18/25 at 06:30; Stop 05/18/25 at 06:29 Octreotide Acetate 1250 mcg/ Sodium Chloride 250 ml @ 0 mls/hr PROTOCOL IV Last administered on 04/18/25at 07:11; Start 04/18/25 at 06:30; Stop 05/18/25 at 06:29 Insulin Human Regular 20 unit ONCE ONCE SQ; Start 04/18/25 at 07:00; Stop 04/18/25 at 07:01; Status DC Lactated Ringer's 1,000 ml @ 75 mls/hr [id number] IV Last administered on 04/18/25at 07:44; Start 04/18/25 at 07:00; Stop 05/18/25 at 06:59 Insulin Human Regular INSULIN SLIDING SCAL... Q6H6 SQ; Start 04/18/25 at 12:00; Stop 05/18/25 at 11:59 ELIZABETH WAGNER Jr. Apr 18, 2025 17:12
--- NOTE | 2025-04-18 17:35 | CONS ---
CONSULT NOTE: Consulting physician:Dr Gomez Consulting service: General surgery Reason for consultation: Cecal mass History of present illness: This is a 50-year-old female with a medical history listed below that has been consulted to surgery for concerns of hematochezia and hematemesis. After evaluating patient patient reporting two days prior having dinner and beginning with black tarry stool. Patient reported weakness and due to concerns presented to the hospital for further evaluation. Patient on admission noted to have a hemoglobin of 5.7 requiring transfusion now 7.3. Patient is currently scheduled for EGD tomorrow with GI. Upon workup patient also with CT imaging concerning for prominent soft tissue associated with surgical clips at the level of the cecum which could be the result of prior appendectomy which correlated with the patient's story but for that reason surgery was consulted Medical history: Not alcoholic liver cirrhosis, hypertension, diabetes mellitus PAST SURGICAL HISTORY: Appendectomy, Hysterectomy, Cholecystectomy, PAST SOCIAL HISTORY: Denies tobacco, hardly drinks alcohol and denies illicit drug use Review of systems: General: No Fever, No Chills, No Night Sweats, No Fatigue, No Malaise, No Appetite, No Other HEENT: No Head Aches, No Visual Changes, No Eye Pain, No Ear Pain, No Dysphasia, No Sinus Congestion, No Post Nasal Drip, No Sore Throat, No Other Pulmonary: No Dyspnea, No Cough, No Pleuritic Chest Pain, No Other Cardiovascular: No: Chest Pain, Palpitations, Orthopnea, Paroxysmal No Dyspnea, Edema, Lt Headedness, Other Gastrointestinal: No: Nausea, Vomiting, Diarrhea, Constipation, Melena, Hematochezia, Other Genitourinary: No Dysuria, No Frequency, No Incontinence, No Hematuria, No Retention, No Other Musculoskeletal: No: other, neck pain, shoulder pain, arm pain, back pain, hand pain, leg pain, foot pain Skin: No Urticaria, No Rash, No Other Neurological: No: Weakness, Numbness, Incoordination, Change in speech, Conf usion, Seizures, Other Physical exam: General: Awake alert and oriented Heart: Regular rate and rhythm} Lungs: Clear to auscultation no distress Abdomen: [Soft, nontender, nondistended Assessment: This is a 50-year-old female with concerns of hematochezia hematemesis consulted to surgery for concerns of possible cecal mass likely from surgical clips on appendectomy Plan: From surgical standpoint we will await for GI evaluation and recommendations Patient could benefit from colonoscopy as well as EGD Continue to monitor hemoglobin closely and transfuse as needed Dr. Crain to be updated in patient's status Surgical case has been discussed with my supervising physician in the above plan was formulated and agreed upon Supervising physicians evaluation the patient be done within next 24 hours We appreciate the hospitalist team for us to participate in patient's care. Greater than 55 minutes of time spent patient, reviewing chart, working on documentation ELIZABETH WAGNER Jr. Apr 18, 2025 17:35
[2025-04-18 19:00] VITALS: BP_SYST 114; BP_SYST 91; BP_DIAS 52; BP_DIAS 72; PULSE 103; PULSE 110; RESP 18; TEMP 98.9; TEMP 99.3
--- NOTE | 2025-04-18 19:45 | NUR ---
prbc 1 unit of blood started. patient has no shortness of breath, chest pain, fevers, etc 19:40 the bp is 111/65 with heart rate of 103 19:50 bp is 91/52 with heart rate 103 20:00 bp is 91/56 with heart rate 106
[2025-04-18 23:20] VITALS: BP 99/60; PULSE 96; RESP 18; TEMP 98.6
[2025-04-19] VITALS (14 sets, daily range): BP systolic 107–157; BP diastolic 63–100; PULSE 74–95; RESP 15–18; TEMP 96.9–98.7; O2SAT 96
[2025-04-19 02:25] LABS: IMMATURE GRANULOCYTE ABSOLUTE 0.03 K/uL (0-1); NUCLEATED RED BLOOD CELLS 0.4 % (0.0-0.19); PLATELET COUNT (AUTO) 48 K/uL (130-400); RED BLOOD CELL COUNT(AUTO) 2.62 MIL/uL (4.00-5.50); RED CELL DISTRIBUTION WIDTH 16.7 % (11.0-15.5); WHITE BLOOD COUNT (AUTO) 5.7 K/uL (4.8-10.8)
[2025-04-19 02:33] LABS: CREATININE 0.7 mg/dL (0.5-1.0); GLOMERULAR FILTR. RATE CALC 107.0 mL/min (>90); GLUCOSE,RANDOM 191.0 mg/dL (70-105); SODIUM SERUM 140.0 mmol/L (136-145); UREA NITROGEN, BLOOD 23.0 mg/dL (7-18)
--- NOTE | 2025-04-19 03:00 | NUR ---
hemoglobin 6.3 and platelets 48 paged iveth ribera and let her know. she ordered 1 unit of blood.
--- NOTE | 2025-04-19 03:20 | NUR ---
prbc unit of prbc started. no shortness of breath, chest pain, fevers, etc. bp 109/58 heart rate 79 at 03:15 bp 99/60 heart rate 84 at 0325 bp 101/62 heart rate of 77 patient is on room air sating at 94%
--- NOTE | 2025-04-19 04:51 | NUR ---
potassium potassium 3.8. let iveth know and asked for protocol. she said to continue to monitor potassium. no new orders given.
[2025-04-19] MEDS ORDERED: GLYCOPYRROLATE 0.2 MG/ML 5 ML VIAL ONE (06:48)
[2025-04-19 06:54] LABS: NUCLEATED RED BLOOD CELLS 0.5 % (0.0-0.19); PLATELET COUNT (AUTO) 43.0 K/uL (130-400); RED BLOOD CELL COUNT(AUTO) 2.86 MIL/uL (4.00-5.50); RED CELL DISTRIBUTION WIDTH 16.0 % (11.0-15.5); WHITE BLOOD COUNT (AUTO) 4.2 K/uL (4.8-10.8)
--- NOTE | 2025-04-19 07:10 | NUR ---
endoscopy patient taken to endocopy by davi gutierres.
--- NOTE | 2025-04-19 08:07 | NUR ---
NOTIFIED DEAN Villarreal CRNA OF PT C/O OF PAIN. EVELYN RECOMMENDED NO PAIN MEDICATIONS BE GIVEN IN PACU. RECOMMENDED FOR PRIMARY NURSE AND TEAM TO ADDRESS PAIN. READ BACK ORDERS AND AGREED. Addendum: 04/19/25 at 0823 by JESS MESSER RN RN Amended: Links added.
--- NOTE | 2025-04-19 15:07 | PN ---
GASTROENTEROLOGY PROGRESS NOTE Date of Visit: Apr 19, 2025 Time of Visit: 15:03 Events / Notes: [ Patient underwent EGD today and was found to have large esophageal varices. These were banded and completely eradicated. She also has portal hypertensive gastropathy, and normal examined duodenum. Patient's WBC of 4.2, hemoglobin 7.1, hematocrit 22.3, platelets 43. Chemistries significant for BUN of 23, g lucose 181, calcium 6.9. Results given to patient. ] Review of Systems: CONSTITUTIONAL: No malaise or change in sensation of wellbeing. ENMT: No rhinorrhea, otorrhea, sinus pain, ear ache. CARDIOVASCULAR: No angina, palpitations, orthopnea or paroxysmal dyspnea. RESPIRATORY: No SOB. GASTROINTESTINAL: No abdominal pain, nausea, vomiting, diarrhea, hematemesis, melena or change in the patient's habitual bowel movements consistency/number. GENITOURINARY: No dysuria, hematuria or change in bladder continence. MUSCULOSKELETAL: No new muscle pain or decrease in muscular strength. No new joint swelling, redness or tenderness. SKIN: No new rash. Physical Exam: GEN: Awake, alert, oriented in person, time and place, and in no acute distress. HEENT: No rhinorrhea. Oral pharyngeal mucosa is pink, moist and within normal limits. CHEST: Lung auscultation revealed normal breath sounds bilaterally. CARDIAC:Heart sounds are regular. ABD: Soft, midl tenderness to upper abdomen and not distended. No peritoneal signs on palpation. Normal bowel sounds. Last bm 04/18/25 EXT: No cyanosis or clubbing. No edema. SKIN: Intact. No rashes. NEURO: Alert and oriented to name, place and person.No focal motor deficits. Normal speech. Vital Signs (last 8hr) Date Time Temp Pulse Resp B/P (MAP) Pulse Ox O2 Delivery O2 Flow Rate FiO2 04/19/25 12:00 98.1 95 18 135/88 95 Room Air 04/19/25 11:00 88 135/88 96 04/19/25 08:45 98.8 94 18 157/100 97 Room Air 04/19/25 08:45 84 137/84 97 04/19/25 08:35 Room Air* 0 21 04/19/25 08:22 97.0 90 15 144/94 90 Room Air 04/19/25 08:17 86 16 152/96 99 Room Air 04/19/25 08:12 85 16 150/76 99 Room Air 04/19/25 08:07 91 15 149/70 99 Room Air 04/19/25 08:02 85 16 151/95 100 Nonrebreathing Mask 10.0 04/19/25 07:57 89 16 153/93 100 Nonrebreathing Mask 10.0 04/19/25 07:52 97.0 88 15 157/99 100 Nonrebreathing Mask 10.0 04/19/25 07:38 Mask 04/19/25 07:38 Mask 10.0 Laboratory: [ ] Laboratory: Test 04/19/25 11:06 04/19/25 06:40 04/19/25 02:12 04/18/25 15:45 Range/Units Whole Blood Glucose 187 H 70-110 MG/DL White Blood Count 4.2 #L 4.8-10.8 K/uL Red Blood Count 2.86 L 4.00-5.50 MIL/uL Hemoglobin 7.1 L 12.0-16.0 g/dL Hematocrit 22.3 L 36-48 % Mean Corpuscular Volume 78.0 L 79-99 fL Mean Corpuscular Hemoglobin 24.8 L 27.0-33.0 pg Mean Corpuscular Hemoglobin Concent 31.8 L 32.0-36.0 g/dL Red Cell Distribution Width 16.0 H 11.0-15.5 % Platelet Count 43 L 130-400 K/uL Mean Platelet Volume 10.8 H 7.5-10.5 fL Nucleated Red Blood Cells 0.5 H 0.0-0.19 % Immature Granulocyte % (Auto) 0.5 0-1 % Neutrophils (%) (Auto) 53.9 40.0-77.0 % Lymphocytes (%) (Auto) 36.6 21.0-51.0 % Monocytes (%) (Auto) 6.2 3.0-13.0 % Eosinophils (%) (Auto) 2.1 0.0-8.0 % Basophils (%) (Auto) 0.7 0.0-5.0 % Neutrophils # (Auto) 3.0 1.8-7.7 K/uL Lymphocytes # (Auto) 2.1 1.0-4.8 K/uL Monocytes # (Auto) 0.4 0.1-1.0 K/uL Eosinophils # (Auto) 0.12 0.00-0.70 K/uL Basophils # (Auto) 0.04 0.00-0.20 K/uL Absolute Immature Granulocyte (auto 0.03 0-1 K/uL Platelet Morphology Comment See comments Sodium Level 140 136-145 mmol/L Potassium Level 3.8 3.5-5.1 mmol/L Chloride Level 108 101-111 mmol/L Carbon Dioxide Level 25 21-32 mmol/L Blood Urea Nitrogen 23 H 7-18 mg/dL Creatinine 0.7 0.5-1.0 mg/dL Glomerular Filtration Rate Calc 107 >90 mL/min Random Glucose 191 H 70-105 mg/dL Total Calcium 6.9 L 8.5-10.1 mg/dL Urine Color LIGHT-YELLOW YELLOW Urine Appearance CLEAR CLEAR Urine pH 5.5 5.0-8.0 Urine Specific [place] 1.025 1.001-1.031 Urine Protein NEGATIVE NEGATIVE mg/dL Urine Glucose (UA) 300 H NEGATIVE mg/dL Urine Ketones NEGATIVE NEGATIVE mg/dL Urine Occult Blood NEGATIVE NEGATIVE Urine Nitrate NEGATIVE NEGATIVE Urine Bilirubin NEGATIVE NEGATIVE mg/dL Urine Urobilinogen 0.2 0.2-1.0 mg/dL Urine Leukocyte Esterase NEGATIVE NEGATIVE Daquan/uL Urine RBC 0-1 0-1 /HPF Urine WBC 2-5 H 0-1 /HPF Urine Squamous Epithelial Cells RARE 0-2 /HPF Urine Bacteria None None Seen /HPF Test 04/18/25 05:54 Range/Units Red Blood Cell Morphology See comments Total Bilirubin 1.0 0.2-1.0 mg/dL Aspartate Amino Transf (AST/SGOT) 11 10-37 U/L Alanine Aminotransferase (ALT/SGPT) 21 12-78 U/L Alkaline Phosphatase 92 50-136 U/L Total Protein 5.7 L 6.0-8.3 g/dL Albumin 2.9 L 3.5-5.0 g/dL Current Medications Medications (Trade) Dose Ordered Sig/Carlos Route PRN Reason Start Time Stop Time Status Last Admin Dose Admin Acetaminophen (TYLenol 325MG TAB) 650 mg Q4HPRN PRN PO MILD PAIN (1-3) 04/19/25 12:00 05/19/25 11:59 04/19/25 14:24 650 MG Insulin Human Regular (humuLIN R 100 UNIT/ML 3ML) INSULIN SLIDING SCAL... Q6H6 SQ 04/18/25 12:00 05/18/25 11:59 04/19/25 11:46 4 UNIT Lactated Ringer's 1,000 ml @ 75 mls/hr [id number] IV 04/18/25 07:00 04/19/25 14:37 DC 04/18/25 23:22 75 MLS/HR Lactated Ringer's (Lactated Ringers 1000ml) 1,000 ml BOLUS STAT IV 04/18/25 05:40 04/18/25 05:44 DC 04/18/25 06:03 1,000 ML Octreotide Acetate 1250 mcg/ Sodium Chloride 250 ml @ 0 mls/hr PROTOCOL IV 04/18/25 06:30 05/18/25 06:29 04/18/25 07:11 5 MLS/HR Ondansetron HCl (zoFRAN 4MG INJ) 4 mg Q6H PRN IVP NAUSEA/VOMITING 04/18/25 06:30 05/18/25 06:29 Pantoprazole Sodium 80 mg/ Sodium Chloride 100 ml @ 10 mls/hr Q10H IV 04/18/25 06:30 04/19/25 11:10 DC 04/18/25 23:21 10 MLS/HR Diagnostics / Radiology: [COPY/PASTE HERE IF NO REPORTS PLEASE DELETE SECTION] Assessment: [ Esophageal varices Concern for GI bleed anemia Liver cirrhosis Type 2 diabetes] Plan Case discussed with Dr. Gusman 1.Full liquid diet 2. Advance diet to soft tomorrow morning as tolerated 3. Continue with Pantoprazole 40 mg IV bid 4. Continue with Octreotide 50 mcg/hr IV infusion for 24 hours. 5. Recommend checking HGB every 6 hours and transfuse to goal HG>7. Please do not over-transfuse 6. Please contact our service if the patient has significant bleeding such as hematemesis and we may need to repeat EGD Thank you for allowing us to participate in the care of this patient. BRENDA NIÑO Apr 19, 2025 15:07
--- NOTE | 2025-04-19 15:24 | PN ---
[facility] PROGRESS NOTE Date of Service: Apr 19, 2025 Time of Service: 15:17 SUBJECTIVE: [Patient was followed up today, so far she received 3 units of PRBC. She is status post EGD showed greater than 5 mm varices found in the lower 3rd of the esophagus. They were large in size, three bands were successfully placed with complete eradication, resulting in deflation of varices. Mild portal hypertensive gastropathy was found in the gastric body and in gastric antrum. The examined duodenum was normal. Recommendation is full liquid today advance diet to soft tomorrow with breakfast. Acquired drip times 24 more hours. May discontinue Protonix drip. Follow up with GI in one week. Currently patient is doing well. She tolerated the procedure. Her H&H is 7.1/ 22.3, we repeated at 3:00 p.m. and it was 9/28.2 respectively.] REVIEW OF SYSTEMS CONSTITUTIONAL: Denies fevers, chills, or night sweats. No unintentional weight loss reported. NEUROLOGICAL: Denies headache, amaurosis fugax, motor weakness, sensory deficit, vertigo/spinning sensation, gait abnormalities, or tremors. ENT: No hearing loss, otalgia, otorrhea, rhinitis, rhinorrhea, hoarseness, or sore throat. CARDIOVASCULAR: Denies any exertional angina, dyspnea on exertion, orthopnea, paroxysmal nocturnal dyspnea, palpitations, life-threatening arrhythmias, claudication. PULMONARY: Denies any shortness of breath, cough, phlegm/sputum, hemoptysis, pleuritic chest pain. SLEEP: Denies morning headaches, daytime somnolence or napping. Denies difficulty falling asleep, staying asleep, waking from sleep. Denies knowledge of snoring. GASTROINTESTINAL: Denies any type of dysphagia to either liquids or solids. Denies nausea, vomiting, pyrosis, early satiety, abdominal pain, diarrhea, constipation, or changes in stool consistency or caliber. Denies coffee-ground emesis, hematemesis, hematochezia, or melanotic stools. GENITOURINARY: Denies frequency, urgency, nocturia, hematuria or incontinence (Storage/Irritative symptoms.) Low urinary stream, straining to void, urinary intermittency or hesitancy, splitting of the voiding stream, terminal dribbling. ENDOCRINOLOGIC: Denies polyuria, polydipsia, polyphagia or heat/cold intolerances. HEMATOLOGIC: Denies thrombophilia/previous clots, or coagulopathy/bleeding disorders. ONCOLOGIC: Denies personal history of malignancy. DERMATOLOGIC: Denies rashes or pruritus. PSYCHIATRIC: Denies any suicidal or homicidal ideation. Denies hallucinations. PHYSICAL EXAM GENERAL APPEARANCE: The patient is awake, alert, and oriented, in no acute cardiopulmonary distress. NEUROLOGICAL: Cranial nerves II-XII grossly intact. Motor is 5/5 in bilateral upper and lower extremities proximal to distal. No sensory deficits. HEENT: Face is symmetric. Pupils are equal and reactive. Extraocular movements are intact. NECK: Supple. No JVD. No thyromegaly. No submental, submandibular, pre-/postauricular, occipital or supraclavicular lymphadenopathy. CHEST: Normal chest expansion. No Telemetry. LUNGS: Absence of any rales, rhonchi or any wheezing. CARDIOVASCULAR: Regular. S1 and S2 normal. No appreciable rubs, murmurs or gallops. ABDOMEN: Soft, nontender, and nondistended. There is no rebound, voluntary guarding, or rigidity. : Deferred. No Holly. EXTREMITIES: Non-edematous and not cyanotic. No clubbing. Good capillary refill. SKIN: No skin breakdown. Vital Signs (last 8hr) Date Time Temp Pulse Resp B/P (MAP) Pulse Ox O2 Delivery O2 Flow Rate FiO2 04/19/25 12:00 98.1 95 18 135/88 95 Room Air 04/19/25 11:00 88 135/88 96 04/19/25 08:45 98.8 94 18 157/100 97 Room Air 04/19/25 08:45 84 137/84 97 04/19/25 08:35 Room Air* 0 21 04/19/25 08:22 97.0 90 15 144/94 90 Room Air 04/19/25 08:17 86 16 152/96 99 Room Air 04/19/25 08:12 85 16 150/76 99 Room Air 04/19/25 08:07 91 15 149/70 99 Room Air 04/19/25 08:02 85 16 151/95 100 Nonrebreathing Mask 10.0 04/19/25 07:57 89 16 153/93 100 Nonrebreathing Mask 10.0 04/19/25 07:52 97.0 88 15 157/99 100 Nonrebreathing Mask 10.0 04/19/25 07:38 Mask 04/19/25 07:38 Mask 10.0 LABS: Laboratory: Test 04/19/25 15:04 04/19/25 11:06 04/19/25 06:40 04/19/25 02:12 Range/Units Hemoglobin 9.0 #L 12.0-16.0 g/dL Hematocrit 28.2 #L 36-48 % Whole Blood Glucose 187 H 70-110 MG/DL White Blood Count 4.2 #L 4.8-10.8 K/uL Red Blood Count 2.86 L 4.00-5.50 MIL/uL Mean Corpuscular Volume 78.0 L 79-99 fL Mean Corpuscular Hemoglobin 24.8 L 27.0-33.0 pg Mean Corpuscular Hemoglobin Concent 31.8 L 32.0-36.0 g/dL Red Cell Distribution Width 16.0 H 11.0-15.5 % Platelet Count 43 L 130-400 K/uL Mean Platelet Volume 10.8 H 7.5-10.5 fL Nucleated Red Blood Cells 0.5 H 0.0-0.19 % Immature Granulocyte % (Auto) 0.5 0-1 % Neutrophils (%) (Auto) 53.9 40.0-77.0 % Lymphocytes (%) (Auto) 36.6 21.0-51.0 % Monocytes (%) (Auto) 6.2 3.0-13.0 % Eosinophils (%) (Auto) 2.1 0.0-8.0 % Basophils (%) (Auto) 0.7 0.0-5.0 % Neutrophils # (Auto) 3.0 1.8-7.7 K/uL Lymphocytes # (Auto) 2.1 1.0-4.8 K/uL Monocytes # (Auto) 0.4 0.1-1.0 K/uL Eosinophils # (Auto) 0.12 0.00-0.70 K/uL Basophils # (Auto) 0.04 0.00-0.20 K/uL Absolute Immature Granulocyte (auto 0.03 0-1 K/uL Platelet Morphology Comment See comments Sodium Level 140 136-145 mmol/L Potassium Level 3.8 3.5-5.1 mmol/L Chloride Level 108 101-111 mmol/L Carbon Dioxide Level 25 21-32 mmol/L Blood Urea Nitrogen 23 H 7-18 mg/dL Creatinine 0.7 0.5-1.0 mg/dL Glomerular Filtration Rate Calc 107 >90 mL/min Random Glucose 191 H 70-105 mg/dL Total Calcium 6.9 L 8.5-10.1 mg/dL Test 04/18/25 15:45 04/18/25 05:54 Range/Units Urine Color LIGHT-YELLOW YELLOW Urine Appearance CLEAR CLEAR Urine pH 5.5 5.0-8.0 Urine Specific [place] 1.025 1.001-1.031 Urine Protein NEGATIVE NEGATIVE mg/dL Urine Glucose (UA) 300 H NEGATIVE mg/dL Urine Ketones NEGATIVE NEGATIVE mg/dL Urine Occult Blood NEGATIVE NEGATIVE Urine Nitrate NEGATIVE NEGATIVE Urine Bilirubin NEGATIVE NEGATIVE mg/dL Urine Urobilinogen 0.2 0.2-1.0 mg/dL Urine Leukocyte Esterase NEGATIVE NEGATIVE [place]/uL Urine RBC 0-1 0-1 /HPF Urine WBC 2-5 H 0-1 /HPF Urine Squamous Epithelial Cells RARE 0-2 /HPF Urine Bacteria None None Seen /HPF Red Blood Cell Morphology See comments Total Bilirubin 1.0 0.2-1.0 mg/dL Aspartate Amino Transf (AST/SGOT) 11 10-37 U/L Alanine Aminotransferase (ALT/SGPT) 21 12-78 U/L Alkaline Phosphatase 92 50-136 U/L Total Protein 5.7 L 6.0-8.3 g/dL Albumin 2.9 L 3.5-5.0 g/dL Current Medications Medications (Trade) Dose Ordered Sig/Carlos Route PRN Reason Start Time Stop Time Status Last Admin Dose Admin Acetaminophen (TYLenol 325MG TAB) 650 mg Q4HPRN PRN PO MILD PAIN (1-3) 04/19/25 12:00 05/19/25 11:59 04/19/25 14:24 650 MG Insulin Human Regular (humuLIN R 100 UNIT/ML 3ML) INSULIN SLIDING SCAL... Q6H6 SQ 04/18/25 12:00 05/18/25 11:59 04/19/25 11:46 4 UNIT Lactated Ringer's 1,000 ml @ 75 mls/hr [id number] IV 04/18/25 07:00 04/19/25 14:37 DC 04/18/25 23:22 75 MLS/HR Lactated Ringer's (Lactated Ringers 1000ml) 1,000 ml BOLUS STAT IV 04/18/25 05:40 04/18/25 05:44 DC 04/18/25 06:03 1,000 ML Octreotide Acetate 1250 mcg/ Sodium Chloride 250 ml @ 0 mls/hr PROTOCOL IV 04/18/25 06:30 05/18/25 06:29 04/18/25 07:11 5 MLS/HR Ondansetron HCl (zoFRAN 4MG INJ) 4 mg Q6H PRN IVP NAUSEA/VOMITING 04/18/25 06:30 05/18/25 06:29 Pantoprazole Sodium 80 mg/ Sodium Chloride 100 ml @ 10 mls/hr Q10H IV 04/18/25 06:30 04/19/25 11:10 DC 04/18/25 23:21 10 MLS/HR DIAGNOSTICS / RADIOLOGY: [ ] ASSESSMENT: [Acute upper and lower GI bleed, POA Asymptomatic blood loss anemia POA Cirrhotic liver and splenomegaly measuring 16 cm in AP diameter per CT abdomen and pelvis, POA Prominent soft tissue with surgical clips at the level of the cecum, possibly representing stump appendicitis versus underlying neoplasm. Correlation with history, physical examination, and prior imaging if available recommended Thrombocytopenia POA Hyperglycemia with DM, POA Moderate protein caloric malnutrition, POA Morbid obesity with BMI of 33.6 kg/M2 ] PLAN: [We will admit patient in medical telemetry floor Patient will be NPO Initiate IV fluids, oxygen and transfused to hgb less than 7g/dL Correct coagulopathy with platelets if <50,000/L and FFP if INR >1.5 Start IV PPI and octreotide if variceal bleeding is suspected Give ceftriaxone 1 g IV daily for 7 days Type and cross with 1 unit of PRBC transfusion Serial H&H, we will continue to transfuse if hemoglobin is less than seven Diagnostic evaluation: Perform urgent EGD within 12 hours and colonoscopy within 24 hours after stabilization Continue with lactated Ringer's at 100 mL/hour ] Cecal mass management: Obtain surgical consultation for possible stump appendicitis or neoplasm. If malignancy is suspected, perform biopsy and staging CT. If appendicitis is confirmed, proceed with appendectomy. Thrombocytopenia management: Monitor platelet count and consider thrombopoietin receptor agonists if persistent thrombocytopenia Hyperglycemia management: Initiate insulin therapy and monitor blood glucose closely. Nutritional support: Start enteral nutrition with high-protein, calorie-dense formula and monitor nutritional status Morbid obesity management: Implement weight loss strategies, including dietary counseling and physical activity. Monitoring and follow-up: Monitor for rebleeding, infection, and other complications. Schedule regular follow-up visits and imaging studies. FULL CODE ADVANCED CARE PLANNING 1. Which of the following were discussed? Hospice Care - Yes / No Therapeutic options - Yes / No Advance Directives - Yes / No Other discussions - 2. Discussed with who? Patient 3. Voluntary nature of this service was explained to the patient? Yes / No 4. Amount of time spent - ____30 mins___ 5. Reviewed by Physician? (if this service was performed by NPP) Yes / No ATTESTATION BY PHYSICIAN I have seen and examined the patient. I reviewed the documentation, medical decision making, and treatment plan as noted by the mid-level provider above. I agree with the findings and plan of care. Sheree Gomez MD, [facility] Apr 19, 2025 15:24
--- NOTE | 2025-04-19 15:42 | PN ---
GENERAL SURGERY PROGRESS NOTE Date/Time Patient Seen: [ 04/19/2025 12:30 PM] Problem List: [ 50-year-old female with concerns of stump appendicitis versus cecal mass on CT ] Interval History: [Patient underwent EGD today, found to have a large esophageal varices (>5mm) which was banded by Dr. Austin Patient was started on a full liquid diet today, which she has been tolerating GI recommends for patient to continue on Sandostatin drip for 24 more hours Patient is complaining of some epigastric pain Patient denies any right lower quadrant pain WBCs 4.2 H&H 7.1 and 22.3, post blood transfusion yesterday ] Current Medications Medications (Trade) Dose Ordered Sig/Carlos Route Start Time Stop Time Status Last Admin Dose Admin Insulin Human Regular (humuLIN R 100 UNIT/ML 3ML) INSULIN SLIDING SCAL... Q6H6 SQ 04/18/25 12:00 05/18/25 11:59 04/19/25 11:46 4 UNIT Lactated Ringer's 1,000 ml @ 75 mls/hr [id number] IV 04/18/25 07:00 04/19/25 14:37 DC 04/18/25 23:22 75 MLS/HR Lactated Ringer's (Lactated Ringers 1000ml) 1,000 ml BOLUS STAT IV 04/18/25 05:40 04/18/25 05:44 DC 04/18/25 06:03 1,000 ML Octreotide Acetate 1250 mcg/ Sodium Chloride 250 ml @ 0 mls/hr PROTOCOL IV 04/18/25 06:30 05/18/25 06:29 04/18/25 07:11 5 MLS/HR Pantoprazole Sodium 80 mg/ Sodium Chloride 100 ml @ 10 mls/hr Q10H IV 04/18/25 06:30 04/19/25 11:10 DC 04/18/25 23:21 10 MLS/HR Physical Examination: GENERAL: [No acute distress, female, comfortably sitting up in chair.] HEAD: [Normocephalic.] EYES: [Nonicteric sclera bilaterally.] ENT: [Hearing grossly intact.] NECK: [Supple] LUNGS: [Clear breath sounds bilaterally.] HEART: [Normal rate and rhythm.] VASC: [Peripheral pulses +2 bilaterally.] ABD: [Mild epigastric tenderness, Bowel sounds normal, soft, no masses, no guarding or rigidity.] : [Not examined] EXT: [No edema.] SKIN: [No rashes or lesions noted.] NEURO: [Awake, alert, and oriented x3. No focal sensory or strength deficits noted.] Vital Signs (last 8hr) Date Time Temp Pulse Resp B/P (MAP) Pulse Ox O2 Delivery O2 Flow Rate FiO2 04/19/25 12:00 98.1 95 18 135/88 95 Room Air 04/19/25 11:00 88 135/88 96 04/19/25 08:45 98.8 94 18 157/100 97 Room Air 04/19/25 08:45 84 137/84 97 04/19/25 08:35 Room Air* 0 21 04/19/25 08:22 97.0 90 15 144/94 90 Room Air 04/19/25 08:17 86 16 152/96 99 Room Air 04/19/25 08:12 85 16 150/76 99 Room Air 04/19/25 08:07 91 15 149/70 99 Room Air 04/19/25 08:02 85 16 151/95 100 Nonrebreathing Mask 10.0 04/19/25 07:57 89 16 153/93 100 Nonrebreathing Mask 10.0 04/19/25 07:52 97.0 88 15 157/99 100 Nonrebreathing Mask 10.0 04/19/25 07:38 Mask 04/19/25 07:38 Mask 10.0 Laboratory: [ ] Hematology Labs: Test 04/19/25 15:04 04/19/25 06:40 04/19/25 02:12 04/18/25 05:54 Range/Units Hemoglobin 9.0 #L 12.0-16.0 g/dL Hematocrit 28.2 #L 36-48 % White Blood Count 4.2 #L 4.8-10.8 K/uL Red Blood Count 2.86 L 4.00-5.50 MIL/uL Mean Corpuscular Volume 78.0 L 79-99 fL Mean Corpuscular Hemoglobin 24.8 L 27.0-33.0 pg Mean Corpuscular Hemoglobin Concent 31.8 L 32.0-36.0 g/dL Red Cell Distribution Width 16.0 H 11.0-15.5 % Platelet Count 43 L 130-400 K/uL Mean Platelet Volume 10.8 H 7.5-10.5 fL Nucleated Red Blood Cells 0.5 H 0.0-0.19 % Immature Granulocyte % (Auto) 0.5 0-1 % Neutrophils (%) (Auto) 53.9 40.0-77.0 % Lymphocytes (%) (Auto) 36.6 21.0-51.0 % Monocytes (%) (Auto) 6.2 3.0-13.0 % Eosinophils (%) (Auto) 2.1 0.0-8.0 % Basophils (%) (Auto) 0.7 0.0-5.0 % Neutrophils # (Auto) 3.0 1.8-7.7 K/uL Lymphocytes # (Auto) 2.1 1.0-4.8 K/uL Monocytes # (Auto) 0.4 0.1-1.0 K/uL Eosinophils # (Auto) 0.12 0.00-0.70 K/uL Basophils # (Auto) 0.04 0.00-0.20 K/uL Absolute Immature Granulocyte (auto 0.03 0-1 K/uL Platelet Morphology Comment See comments Red Blood Cell Morphology See comments Chemistry Labs: Test 04/19/25 11:06 04/19/25 02:12 04/18/25 05:54 Range/Units Whole Blood Glucose 187 H 70-110 MG/DL Sodium Level 140 136-145 mmol/L Potassium Level 3.8 3.5-5.1 mmol/L Chloride Level 108 101-111 mmol/L Carbon Dioxide Level 25 21-32 mmol/L Blood Urea Nitrogen 23 H 7-18 mg/dL Creatinine 0.7 0.5-1.0 mg/dL Glomerular Filtration Rate Calc 107 >90 mL/min Random Glucose 191 H 70-105 mg/dL Total Calcium 6.9 L 8.5-10.1 mg/dL Total Bilirubin 1.0 0.2-1.0 mg/dL Aspartate Amino Transf (AST/SGOT) 11 10-37 U/L Alanine Aminotransferase (ALT/SGPT) 21 12-78 U/L Alkaline Phosphatase 92 50-136 U/L Total Protein 5.7 L 6.0-8.3 g/dL Albumin 2.9 L 3.5-5.0 g/dL Diagnostics / Radiology: [Copy/Paste Echos/Imaging Report here] Impression and Plan: [Patient is denying any right lower quadrant pain/tenderness on examination We will order CT scan abdomen pelvis with oral and IV contrast tomorrow morning to better evaluate cecal mass versus stump appendicitis Post EGD done today by Dr. Austin, large esophageal varies was banded Patient is to continue on Sandostatin drip for 24 hours Patient states that plan is for patient to get colonoscopy as an outpatient with Dr. Austin Repeat labs in a.m. Surgical team will continue to follow Dr. Crain updated on patient's status Surgical case has been discussed with my supervising physician Plan of care was formulated and agree with plan We appreciate hospitalist team for allowing us to participate in this patient's care Greater than 45 minutes spent examining patient, reviewing chart and working on documentation] ATTESTATION BY PHYSICIAN I have seen and examined the patient. I reviewed the documentation, medical decision making, and treatment plan as noted by the mid-level provider above. I agree with the findings and plan of care. MD CECILIO MEJIAS LETICIA A [employer] Apr 19, 2025 15:42
[2025-04-19] MEDS ORDERED: ACET-3859 PO (19:12)
--- NOTE | 2025-04-20 02:46 | NUR ---
nurse note patient alert and oriented times 4. plan of care discussed with her and she verbalized understanding. patient walks to the restroom without issues. she has some abdominal pain relieved by tylenol. she has slept about 6 hours tonight. she tolerated jello tonight. she is npo for ct abdomen and pelvics. call light within reach, bed alarm on, 2 side rails up. will continue to monitor patient.
[2025-04-20 03:36] VITALS: BP 131/74; PULSE 64; RESP 18; TEMP 98.1
[2025-04-20 04:42] LABS: IMMATURE GRANULOCYTE ABSOLUTE 0.01 K/uL (0-1); NUCLEATED RED BLOOD CELLS 0.0 % (0.0-0.19); PLATELET COUNT (AUTO) 41 K/uL (130-400); RED BLOOD CELL COUNT(AUTO) 3.03 MIL/uL (4.00-5.50); RED CELL DISTRIBUTION WIDTH 16.6 % (11.0-15.5); WHITE BLOOD COUNT (AUTO) 3.6 K/uL (4.8-10.8)
[2025-04-20 05:16] LABS: ASPARTATE AMINOTRANSFERASE 23.0 U/L (10-37); CREATININE 0.6 mg/dL (0.5-1.0); GLOMERULAR FILTR. RATE CALC 111.0 mL/min (>90); GLUCOSE,RANDOM 202.0 mg/dL (70-105); SODIUM SERUM 142.0 mmol/L (136-145); TOTAL PROTEIN, SERUM 5.4 g/dL (6.0-8.3); UREA NITROGEN, BLOOD 12.0 mg/dL (7-18)
--- NOTE | 2025-04-20 06:41 | NUR ---
per RN Liseth pt would like to speak to ordering physician before exam
[2025-04-20 07:51] VITALS: BP 117/80; PULSE 75; RESP 18; TEMP 97.5
[2025-04-20 08:00] VITALS: O2SAT 95
[2025-04-20 11:47] VITALS: BP 111/90; PULSE 89; RESP 18; TEMP 96.1
[2025-04-20 16:05] VITALS: BP 117/73; PULSE 84; RESP 18; TEMP 97.8
--- NOTE | 2025-04-20 16:49 | NUR ---
CT WILL BE CANCELLED BY ORDERING PROVIDER PER BRETT PEREZ.
--- NOTE | 2025-04-20 17:29 | PN ---
This is a 50-year-old female with concerns of stump appendicitis versus cecal mass on CT Interval history: This 50-year-old female seen in her room resting Patient tolerating diet No abdominal pain reported GI planning for potential colonoscopy in outpatient setting at this time Labs and vitals stable Physical exam General: Awake alert and oriented Heart: Regular rate and rhythm} Lungs: Clear to auscultation no distress Abdomen: [Soft, nontender, nondistended Assessment : This is a 50-year-old female with concerns of stump appendicitis versus cecal mass on CT Plan: From surgical no further surgical intervention planned Patient to follow up colonoscopy in outpatient setting with GI Surgical team to sign off at this time Surgical case has been discussed with my supervising physician in the above plan was formulated and agreed upon We appreciate the hospitalist team for us to participate in patient's care. Greater than 45 minutes of time spent patient, reviewing chart, working on documentation Vitals/Labs Vital Signs Date Time Temp Pulse Resp B/P (MAP) Pulse Ox O2 Delivery O2 Flow Rate FiO2 04/20/25 11:47 96.1 89 18 111/90 96 Room Air 04/20/25 08:00 0 21 Laboratory Tests 04/20/25 04:28 Medications Current Medications Lactated Ringer's 1,000 ml BOLUS STAT IV Last administered on 04/18/25at 06:03; Start 04/18/25 at 05:40; Stop 04/18/25 at 05:44; Status DC Ondansetron HCl 4 mg ONCE ONCE IVP Last administered on 04/18/25at 06:03; Start 04/18/25 at 06:00; Stop 04/18/25 at 06:01; Status DC Pantoprazole Sodium 80 mg/ Sodium Chloride 100 ml @ 10 mls/hr Q10H IV Last administered on 04/18/25at 23:21; Start 04/18/25 at 06:30; Stop 04/19/25 at 11:10; Status DC Ondansetron HCl 4 mg Q6H PRN IVP; Start 04/18/25 at 06:30; Stop 05/18/25 at 06:29 Octreotide Acetate 1250 mcg/ Sodium Chloride 250 ml @ 0 mls/hr PROTOCOL IV Last administered on 04/18/25at 07:11; Start 04/18/25 at 06:30; Stop 05/18/25 at 06:29 Insulin Human Regular 20 unit ONCE ONCE SQ; Start 04/18/25 at 07:00; Stop 04/18/25 at 07:01; Status DC Lactated Ringer's 1,000 ml @ 75 mls/hr [id number] IV Last administered on 04/18/25at 23:22; Start 04/18/25 at 07:00; Stop 04/19/25 at 14:37; Status DC Insulin Human Regular INSULIN SLIDING SCAL... Q6H6 SQ Last administered on 04/20/25at 14:28; Start 04/18/25 at 12:00; Stop 05/18/25 at 11:59 Acetaminophen 500 mg ONCE ONCE RC; Start 04/18/25 at 20:30; Stop 04/18/25 at 20:31; Status DC Propofol 200 mg STK-MED ONCE IV; Start 04/19/25 at 06:47; Stop 04/19/25 at 06:47; Status DC Glycopyrrolate 1 mg STK-MED ONCE .ROUTE; Start 04/19/25 at 06:48; Stop 04/19/25 at 06:47; Status DC Ondansetron HCl 4 mg STK-MED ONCE .ROUTE Last administered on 04/19/25at 08:04; Start 04/19/25 at 08:02; Stop 04/19/25 at 08:02; Status DC Acetaminophen 650 mg Q4HPRN PRN PO Last administered on 04/20/25at 01:38; Start 04/19/25 at 12:00; Stop 05/19/25 at 11:59 Pantoprazole Sodium 40 mg DAILY IVP Last administered on 04/20/25at 10:31; Start 04/20/25 at 09:00; Stop 05/20/25 at 08:59 ELIZABETH WAGNER Jr. PAC Apr 20, 2025 17:29
--- NOTE | 2025-04-20 18:48 | DS ---
Discharge Summary Hospital Course Summary: Hospital Course: Ms. Olmos is a 50-year-old female with a history of nonalcoholic liver cirrhosis, type 2 diabetes mellitus, hypertension, and chronic constipation who presented with acute onset hematemesis and hematochezia. She reported two days of vomiting blood and black, tarry stools, associated with generalized weakness, dizziness, and shortness of breath. On admission, she was found to be profoundly anemic (hemoglobin 5.7 g/dL) and thrombocytopenic (platelets 122 K/uL). Initial management included NPO status, IV fluids, blood transfusions, IV pantoprazole, and octreotide infusion. She was admitted to the medical telemetry floor for close monitoring. Workup: - Laboratory studies revealed severe anemia, thrombocytopenia, hyperglycemia, hypoalbuminemia, and mild elevation in BUN. - Imaging: - CT abdomen/pelvis (no contrast): Cirrhotic liver, splenomegaly (16 cm), haziness of peripancreatic fat (acute pancreatitis not excluded), and a prominent soft tissue mass with surgical clips at the cecum (differential: stump appendicitis vs. neoplasm). - Abdominal X-ray: Nonobstructive bowel gas pattern, moderate fecal residue, no acute process. - Consultations: - Gastroenterology: Recommended urgent EGD, continued octreotide and PPI infusions, and serial hemoglobin monitoring. - General Surgery: Evaluated for cecal mass; recommended further imaging with contrast and outpatient colonoscopy after stabilization. Procedures and Transfusions: - EGD (04/19/2025): Revealed large (>5 mm) esophageal varices in the lower third of the esophagus, which were successfully banded (three bands placed, complete eradication). Mild portal hypertensive gastropathy was noted. No active bleeding was seen post-procedure. The duodenum was normal. - Transfusions: The patient received a total of 3 units of packed red blood cells (PRBC) during her admission, with improvement in hemoglobin to 9.0 g/dL at discharge. Clinical Course: - The patient remained hemodynamically stable after initial resuscitation. No further episodes of hematemesis or melena were reported following EGD and band ligation. - Octreotide infusion was continued for 24 hours post-EGD, and PPI infusion was transitioned to oral therapy. - Blood glucose was managed with sliding scale insulin. - Thrombocytopenia persisted (platelets [place] 43 K/uL), but no evidence of active bleeding or new complications. - Nutritional support was initiated with advancement from full liquids to a soft diet, which was well tolerated. - The patient denied abdominal pain, and no right lower quadrant tenderness was noted on serial exams. - General surgery recommended outpatient colonoscopy for further evaluation of the cecal mass, as the patient was asymptomatic and stable. - No surgical intervention was required during this admission. Discharge Condition: The patient was stable, tolerating diet, ambulating independently, and without evidence of ongoing GI bleeding. She was instructed to follow up with gastroenterology for outpatient colonoscopy and with her primary care provider for ongoing management of cirrhosis, diabetes, and thrombocytopenia. Communications Clerk(s): Dr Crain- surgeon Dr Reyes - GI Procedure(s): Procedure(s) Performed During Hospitalization: Esophagogastroduodenoscopy (EGD) with Variceal Band Ligation Date: 04/19/2025 Findings: Large (>5 mm) esophageal varices in the lower third of the esophagus; three bands were successfully placed with complete eradication of varices. Mild portal hypertensive gastropathy was noted in the gastric body and antrum. The duodenum was normal. Outcome: No active bleeding post-procedure. Patient tolerated the procedure well. Assessment/Plan: Admitting Diagnoses: [Acute upper and lower GI bleed, POA Asymptomatic blood loss anemia POA Cirrhotic liver and splenomegaly measuring 16 cm in AP diameter per CT abdomen and pelvis, POA Prominent soft tissue with surgical clips at the level of the cecum, possibly representing stump appendicitis versus underlying neoplasm. Correlation with history, physical examination, and prior imaging if available recommended Thrombocytopenia POA Hyperglycemia with DM, POA Moderate protein caloric malnutrition, POA Morbid obesity with BMI of 33.6 kg/M2 ] Discharge Diagnoes: Acute upper gastrointestinal bleeding from large esophageal varices (banded with complete eradication) and mild portal hypertensive gastropathy. Severe anemia secondary to acute blood loss (hemoglobin [place] 5.7 g/dL, improved to 9.0 g/dL after 3 units PRBC). Nonalcoholic liver cirrhosis with portal hypertension and splenomegaly (spleen 16 cm). 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 Type 2 diabetes mellitus with hyperglycemia (glucose up to 317 mg/dL). Chronic constipation. Incidental cecal soft tissue mass with surgical clips (likely stump appendicitis vs neoplasm; outpatient colonoscopy planned). Discharge Instructions: Follow Up: - Gastroenterology: - Outpatient follow-up within 1 week for post-EGD evaluation and to schedule colonoscopy for further assessment of the cecal mass. - Monitor for any recurrence of GI bleeding, melena, or hematemesis. - Primary Care Provider: - Follow up within 12 weeks for ongoing management of cirrhosis, diabetes, hypertension, and thrombocytopenia. - Monitor blood counts, liver function, and glycemic control. - Hematology (if indicated): - Consider referral if thrombocytopenia persists or worsens. - Return to Emergency Department: - For any signs of recurrent GI bleeding (hematemesis, melena, hematochezia), severe abdominal pain, syncope, or other acute symptoms. Additional Instructions: - Continue prescribed medications as directed at discharge. - Maintain a soft diet as tolerated, advance as instructed by GI. - Monitor blood glucose at home if able. - Avoid NSAIDs and other medications that may increase bleeding risk. Home Medications: Active Scripts Pantoprazole Sodium (Protonix) 40 Mg Ectab, 1 TAB PO BID for 30 Days, #60 TAB 0 Refills Prov:GABBY BEEBE [facility] 04/21/25 Reported Medications Acetaminophen (Acetaminophen) 325 Mg Tablet, 2 TAB PO Q4HPRN PRN for pain or fe santa for 30 Days, #30 TAB 0 Refills 04/19/25 Discontinued Scripts Oxymetazoline HCl (Afrin) 0.05 % [place], 2 SPRAY NS Q2HPRN PRN for nose bleed, #1 SPRAY Prov:YRN LE MD 06/22/23 Time spent arranging discharge: 31-60 minutes ATTESTATION BY PHYSICIAN I have seen and examined the patient. I reviewed the documentation, medical decision making, and treatment plan as noted by the mid-level provider above. I agree with the findings and plan of care. Sheree Gomez MD, [facility] Apr 20, 2025 18:48
--- NOTE | 2025-04-20 20:06 | NUR ---
DISCHARGE NOTE IV and ID bands removed. Discharge instructions reviewed. Personal belongings taken with patient. Taken down to personal vehicle via wheelchair.
--- NOTE | 2025-04-20 20:31 | NUR ---
NURSING NOTES (DISCHARGE) Patient discharged via wheelchair, wheeled down to the lobby by SUDARSHAN Blankenship, in stable condition. Denies c/o pain. Resp. even and unlabored. Discharged paper and instructions were given by day shift nurse. Understanding verbalized. Patient was discharged to home via private car.
[2025-04-21] MEDS ORDERED: PANT40TA55 PO (12:36)
== END 2025-04-20 20:00 | disposition home or self-care (01) | DRG 432 ==
LOC: EDH 05:34 → EDHIP 06:30 → 4AH 09:00
PROVIDERS: ADMIT Hospitalist; ATTEND Hospitalist
PROC: 30233N1 Transfusion of Nonautologous Red Blood Cells into Peripheral Vein, Percutaneous Approach (ICD-10-PCS; 2025-04-18)
PROC: 06L38CZ Occlusion of Esophageal Vein with Extraluminal Device, Via Natural or Artificial Opening Endoscopic (ICD-10-PCS; principal; 2025-04-19)
DX: K74.60 Unspecified cirrhosis of liver (principal); I85.11 Secondary esophageal varices with bleeding; D62 Acute posthemorrhagic anemia; E44.0 Moderate protein-calorie malnutrition; K76.6 Portal hypertension; D69.6 Thrombocytopenia, unspecified; D69.59 Other secondary thrombocytopenia; D73.1 Hypersplenism; E11.65 Type 2 diabetes mellitus with hyperglycemia; E88.09 Other disorders of plasma-protein metabolism, not elsewhere classified; K59.04 Chronic idiopathic constipation; I10 Essential (primary) hypertension; K76.9 Liver disease, unspecified; K31.89 Other diseases of stomach and duodenum; K59.09 Other constipation; Z68.33 Body mass index [BMI] 33.0-33.9, adult; Z79.899 Other long term (current) drug therapy; Z90.49 Acquired absence of other specified parts of digestive tract; Z90.710 Acquired absence of both cervix and uterus
CPT/HCPCS: 36415; 36430; 43244; 74018; 74176; 80048; 80053; 81001; 82948; 85014; 85018; 85025; 85027; 86850; 86900; 86901; 86923; 93005; 96374; 99285; A4606; G0378; J1815; J2354; J2405; J2470; J2704; J3490; J7030; J7050; J7120; P9016; A4215; A4221; A4222; A4223; A4620; A4663; A7002